=== PATIENT | female | born 1960 | race Caucasian/White ===

== ENCOUNTER → 2016-11-29 | Outpatient (CLI) | payer OTHER ==
[~2016-11-29] MED LIST: 'CLONIDINE0.1 MG PO; AMOXICILLIN500 MG PO; AUGMENTIN 875 M1 TAB PO; BONIVA150 MG PO; CARVEDILOL6.25 MG PO; CELEXA20 MG PO; DIPHENHYDRAMINE50 M1 PO; DOXYCYCLINE MO100 MG PO; ECOTRIN81 MG PO; FLONASE0.05 MG/AC NS; HYDR12.5C PO; HYDR25T PO; IBU-8800 MG PO; LASIX40 MG PO; LISINOPRIL2.5 MG PO; LOPRESSOR25 MG PO; LOPRESSOR50 M1 PO; MELOXICAM15 MG PO; MOTRIN800 MG PO; Motrin,Rufen800 MG PO; NKHM; PRILOSEC20 MG PO; ROBITUSSIN AC 110 ML PO; TOPROL XL25 MG PO; VICO10300 PO; VICODIN 5/500 505 MG PO; ZOFRAN ODT4 MG SL
== END | disposition home or self-care (01) ==
LOC: MAMMO 08:07
DX: N63 Unspecified lump in breast (principal); R92.0 Mammographic microcalcification found on diagnostic imaging of breast

== ENCOUNTER 2017-08-16 10:55 | Emergency (ER) | payer BC ==
[~2017-08-16] VITALS: Ht 162.5 cm; Wt 99.8 kg
[2017-08-16 11:03] VITALS: BP 144/98
[2017-08-16] MEDS ORDERED: NAPROSYN500 MG PO ×2 (12:37→12:53)
== END 2017-08-16 12:42 | disposition home or self-care (01) ==
LOC: ED 10:55
DX: M25.561 Pain in right knee (principal); M25.461 Effusion, right knee; F10.10 Alcohol abuse, uncomplicated; Z79.899 Other long term (current) drug therapy; Z88.8 Allergy status to other drugs, medicaments and biological substances

== ENCOUNTER 2017-10-16 16:41 | Inpatient (IN) | payer BC ==
[~2017-10-16] VITALS: Ht 162.5 cm; Wt 109.1 kg
[~2017-10-16 16:41] MED LIST changes: +NAPROSYN500 MG PO
[2017-10-16 16:44] VITALS: BP 149/92
[2017-10-16 17:13] LABS: BASO # 0.1 10*3/uL (0.0-0.1); BASO % 1.2 % (0.0-1.0); EOS # 0.1 10*3/uL (0.0-0.4); EOS % 1.8 % (1.0-4.0); HEMATOCRIT 39.9 % (37.0-47.0); HEMOGLOBIN 12.8 g/dl (12.0-16.0); LYMPH # 1.1 10*3/uL (1.3-4.4); LYMPH % 21.6 % (27.0-41.0); MEAN CELL VOLUME 88.9 fl (81.0-99.0); MEAN CORPUSCULAR HGB 28.5 pg (27.0-31.0); MEAN CORPUSCULAR HGB CONC 32.1 g/dl (33.0-37.0); MEAN PLATELET VOLUME 9.8 fl (9.6-12.3); MONO # 0.5 10*3/uL (0.1-1.0); MONO % 9.4 % (3.0-9.0); NEUT # 3.4 10*3/uL (2.3-7.9); NEUT % 65.6 % (47.0-73.0); PLATELET COUNT AUTOMATED 310 10*3/uL (130-400); RED BLOOD COUNT 4.49 10*6/uL (4.10-5.10); RED CELL DISTRI WIDTH 14.1 % (0-14.5); WHITE BLOOD COUNT 5.1 10*3/uL (4.8-10.8)
[2017-10-16 17:22] LABS: ACT PARTIAL THROMBO TIME 22.9 SECONDS (20.8-31.5); INTERNATIONAL NORM RATIO 0.9 (2.0-3.5)
[2017-10-16 17:29] LABS: ALBUMIN 3.3 gm/dl (3.1-4.5); ALKALINE PHOSPHATASE 128 U/L (45-117); BUN 13 mg/dl (7-24); CHLORIDE 106 mmol/L (98-107); CREATININE 0.75 mg/dL (0.55-1.02); LIPASE 229 U/L (73-393); POTASSIUM 3.9 mmol/L (3.5-5.1); SGOT/AST 51 IU/L (3-35); SGPT/ALT 49 U/L (12-78); SODIUM 140 mmol/L (136-145); TOTAL PROTEIN 7.2 gm/dL (6.4-8.2)
[2017-10-16 17:32] LABS: TROPONIN I < 0.015 ng/ml (<0.045)
[2017-10-16 18:30] VITALS: BP 138/82
[2017-10-16 19:45] VITALS: BP 147/94
[2017-10-16 20:01] VITALS: BP 147/94
== END 2017-10-17 00:16 | disposition left against medical advice (07) | DRG 282 ==
LOC: ED 16:41 → EDHOLD 18:24 → 5E 18:43
PROVIDERS: Physician Assistant
DX: I21.9 Acute myocardial infarction, unspecified (principal); F10.20 Alcohol dependence, uncomplicated; R07.9 Chest pain, unspecified; F17.200 Nicotine dependence, unspecified, uncomplicated; Z88.9 Allergy status to unspecified drugs, medicaments and biological substances; Z98.891 History of uterine scar from previous surgery; Z98.51 Tubal ligation status; Z82.3 Family history of stroke; Z83.3 Family history of diabetes mellitus; Z82.49 Family history of ischemic heart disease and other diseases of the circulatory system

== ENCOUNTER 2017-11-16 09:21 | Emergency (ER) | payer BC ==
[~2017-11-16] VITALS: Ht 162.5 cm; Wt 95.3 kg
[2017-11-16 09:24] VITALS: BP 96/74
[2017-11-16] MEDS ORDERED: NORCO 5-325 TA1 EACH PO (11:39)
== END 2017-11-16 11:51 | disposition home or self-care (01) ==
LOC: ED 09:21
DX: S52.121A Displaced fracture of head of right radius, initial encounter for closed fracture (principal); Z88.8 Allergy status to other drugs, medicaments and biological substances; W10.9XXA Fall (on) (from) unspecified stairs and steps, initial encounter; Y93.89 Activity, other specified; Y92.89 Other specified places as the place of occurrence of the external cause; Y99.8 Other external cause status

== ENCOUNTER 2018-08-14 14:03 | Emergency (ER) | payer BC ==
[~2018-08-14] VITALS: Ht 162.5 cm; Wt 95.3 kg
[~2018-08-14 14:03] MED LIST changes: +NORCO 5-325 TA1 EACH PO
[2018-08-14 14:04] VITALS: BP 130/90
[2018-08-14] MEDS ORDERED: VISTARIL50 MG PO (14:41)
== END 2018-08-14 15:00 | disposition home or self-care (01) ==
LOC: ED 14:03
DX: L50.0 Allergic urticaria (principal); T44.995A Adverse effect of other drug primarily affecting the autonomic nervous system, initial encounter; I10 Essential (primary) hypertension; Z88.8 Allergy status to other drugs, medicaments and biological substances; Y92.89 Other specified places as the place of occurrence of the external cause

== ENCOUNTER 2019-03-02 16:26 | Emergency (ER) | payer BC ==
[~2019-03-02] VITALS: Ht 162.5 cm; Wt 95.3 kg
[~2019-03-02 16:26] MED LIST changes: +GOOD NEIGHBOR M25 M1 PO; +VISTARIL50 MG PO
[2019-03-02 16:27] VITALS: BP 152/73
[2019-03-02 17:20] LABS: BASO # 0.1 10*3/uL (0.0-0.1); BASO % 0.6 % (0.0-1.0); EOS # 0.2 10*3/uL (0.0-0.4); EOS % 2.2 % (1.0-4.0); HEMATOCRIT 40.1 % (37.0-47.0); HEMOGLOBIN 12.3 g/dl (12.0-16.0); LYMPH # 2.3 10*3/uL (1.3-4.4); LYMPH % 25.1 % (27.0-41.0); MEAN CELL VOLUME 90.7 fl (81.0-99.0); MEAN CORPUSCULAR HGB 27.8 pg (27.0-31.0); MEAN CORPUSCULAR HGB CONC 30.7 g/dl (33.0-37.0); MEAN PLATELET VOLUME 9.8 fl (9.6-12.3); MONO # 0.5 10*3/uL (0.1-1.0); MONO % 5.1 % (3.0-9.0); NEUT % 66.8 % (47.0-73.0); PLATELET COUNT AUTOMATED 328 10*3/uL (130-400); RED BLOOD COUNT 4.42 10*6/uL (4.10-5.10); RED CELL DISTRI WIDTH 14.4 % (0-14.5)
[2019-03-02 17:31] LABS: ACT PARTIAL THROMBO TIME 24.5 SECONDS (20.0-32.1); INTERNATIONAL NORM RATIO 0.9 (2.0-3.5)
== END 2019-03-02 17:40 | disposition home or self-care (01) ==
LOC: ED 16:26
PROVIDERS: Physician Assistant
DX: R23.3 Spontaneous ecchymoses (principal); Z88.8 Allergy status to other drugs, medicaments and biological substances; Z79.899 Other long term (current) drug therapy

== ENCOUNTER 2019-03-07 22:27 | Emergency (ER) | payer BC ==
[~2019-03-07] VITALS: Wt 89.8 kg
[2019-03-07 22:28] VITALS: BP 139/63
[2019-03-07] MEDS ORDERED: ATIVAN1 MG PO (23:36)
[2019-03-07] MEDS ORDERED: ATARAX,VISTARIL50 MG PO (23:42)
== END 2019-03-08 00:13 | disposition home or self-care (01) ==
LOC: ED 22:27
DX: R21 Rash and other nonspecific skin eruption (principal); F41.1 Generalized anxiety disorder; F43.0 Acute stress reaction; I10 Essential (primary) hypertension; Z88.8 Allergy status to other drugs, medicaments and biological substances

== ENCOUNTER 2019-03-10 19:23 | Emergency (ER) | payer BC ==
[~2019-03-10] VITALS: Ht 162.5 cm; Wt 88.5 kg
[~2019-03-10 19:23] MED LIST changes: +ATARAX,VISTARIL50 MG PO; +ATIVAN1 MG PO
[2019-03-10 19:27] VITALS: BP 154/78
[2019-03-10 20:14] LABS: BASO % 0.3 % (0.0-1.0); EOS # 0.3 10*3/uL (0.0-0.4); EOS % 3.9 % (1.0-4.0); HEMATOCRIT 42.4 % (37.0-47.0); HEMOGLOBIN 13.2 g/dl (12.0-16.0); LYMPH # 1.6 10*3/uL (1.3-4.4); LYMPH % 18.2 % (27.0-41.0); MEAN CELL VOLUME 89.5 fl (81.0-99.0); MEAN CORPUSCULAR HGB 27.8 pg (27.0-31.0); MEAN CORPUSCULAR HGB CONC 31.1 g/dl (33.0-37.0); MEAN PLATELET VOLUME 9.9 fl (9.6-12.3); MONO # 0.5 10*3/uL (0.1-1.0); MONO % 5.1 % (3.0-9.0); NEUT # 6.3 10*3/uL (2.3-7.9); PLATELET COUNT AUTOMATED 324 10*3/uL (130-400); RED BLOOD COUNT 4.74 10*6/uL (4.10-5.10); RED CELL DISTRI WIDTH 14.3 % (0-14.5); WHITE BLOOD COUNT 8.7 10*3/uL (4.8-10.8)
[2019-03-10 20:33] LABS: ALBUMIN 3.2 gm/dl (3.1-4.5); ALKALINE PHOSPHATASE 133 U/L (45-117); BUN 18 mg/dl (7-24); CHLORIDE 109 mmol/L (98-107); CREATININE 1.04 mg/dL (0.55-1.02); SGOT/AST 32 IU/L (3-35); SGPT/ALT 43 U/L (12-78); SODIUM 138 mmol/L (136-145); TOTAL PROTEIN 7.2 gm/dL (6.4-8.2)
[2019-03-10] MEDS ORDERED: PREDNISONE20 M1 PO (22:07)
== END 2019-03-10 22:21 | disposition home or self-care (01) ==
LOC: ED 19:23
PROVIDERS: Emergency Medicine Emergency Medical Services
DX: L30.9 Dermatitis, unspecified (principal); I10 Essential (primary) hypertension; Z88.8 Allergy status to other drugs, medicaments and biological substances

== ENCOUNTER → 2019-05-15 | Outpatient (CLI) | payer BC ==
[~2019-05-15] MED LIST changes: +PREDNISONE20 M1 PO
[2019-05-15 10:34] LABS: BASO # 0.1 10*3/uL (0.0-0.1); BASO % 0.7 % (0.0-1.0); EOS # 0.1 10*3/uL (0.0-0.4); EOS % 1.1 % (1.0-4.0); HEMATOCRIT 42.8 % (37.0-47.0); HEMOGLOBIN 13.5 g/dl (12.0-16.0); LYMPH # 1.7 10*3/uL (1.3-4.4); LYMPH % 19.4 % (27.0-41.0); MEAN CELL VOLUME 88.8 fl (81.0-99.0); MEAN CORPUSCULAR HGB CONC 31.5 g/dl (33.0-37.0); MONO # 0.4 10*3/uL (0.1-1.0); MONO % 4.7 % (3.0-9.0); NEUT # 6.5 10*3/uL (2.3-7.9); NEUT % 73.6 % (47.0-73.0); PLATELET COUNT AUTOMATED 397 10*3/uL (130-400); RED BLOOD COUNT 4.82 10*6/uL (4.10-5.10); RED CELL DISTRI WIDTH 14.4 % (0-14.5); WHITE BLOOD COUNT 8.8 10*3/uL (4.8-10.8)
[2019-05-15 11:03] LABS: ALBUMIN 3.4 gm/dl (3.1-4.5); ALKALINE PHOSPHATASE 137 U/L (45-117); BUN 11 mg/dl (7-24); CHLORIDE 107 mmol/L (98-107); CHOLESTEROL 223 mg/dL (<200); CREATININE 0.66 mg/dL (0.55-1.02); FREE T4 0.84 ng/dl (0.76-1.46); HDL CHOLESTEROL 78 mg/dl (40-60); LDL CHOLESTEROL 124 mg/dL (9-159); POTASSIUM 3.7 mmol/L (3.5-5.1); SGOT/AST 18 IU/L (3-35); SGPT/ALT 38 U/L (12-78); SODIUM 139 mmol/L (136-145); TOTAL PROTEIN 7.5 gm/dL (6.4-8.2); TRIGLYCERIDES 107 mg/dl (<150); VLDL CHOLESTEROL 21 mg/dL (6-40)
[2019-05-15 11:29] LABS: VITAMIN D, 25-HYDROXY 23.8 ng/mL (30-100)
[2019-05-16 08:11] LABS: RHEUMATOID ARTHRITIS FACTOR <10.0 IU/mL (0.0-13.9)
[2019-05-16 13:08] LABS: ANTI-DSDNA ANTIBODIES 096339 <1 IU/mL (0-9)
== END | disposition home or self-care (01) ==
LOC: LAB 09:45 → EDSTATUS 09:45
PROVIDERS: Internal Medicine
DX: Z13.21 Encounter for screening for nutritional disorder (principal); Z13.1 Encounter for screening for diabetes mellitus; Z13.220 Encounter for screening for lipoid disorders; I10 Essential (primary) hypertension; F33.0 Major depressive disorder, recurrent, mild; L20.9 Atopic dermatitis, unspecified; R70.0 Elevated erythrocyte sedimentation rate

== ENCOUNTER 2019-10-03 12:59 | Emergency (ER) | payer BC ==
[~2019-10-03] VITALS: Ht 162.5 cm; Wt 104.3 kg
[2019-10-03 13:08] VITALS: BP 109/69
[2019-10-03] MEDS ORDERED: PREDNISONE50 MG PO (13:50)
== END 2019-10-03 14:34 | disposition home or self-care (01) ==
LOC: ED 12:59
DX: L25.9 Unspecified contact dermatitis, unspecified cause (principal); I10 Essential (primary) hypertension; Z88.8 Allergy status to other drugs, medicaments and biological substances

== ENCOUNTER 2019-10-13 11:19 | Emergency (ER) | payer BC ==
[~2019-10-13] VITALS: Ht 162.5 cm; Wt 104.3 kg
[~2019-10-13 11:19] MED LIST changes: +PREDNISONE50 MG PO
[2019-10-13 11:38] VITALS: BP 141/100
[2019-10-13] MEDS ORDERED: PREDNISONE20 M1 PO (12:19)
[2019-10-13] MEDS ORDERED: ELIMITE 5%60 GM T (12:21)
== END 2019-10-13 12:45 | disposition home or self-care (01) ==
LOC: ED 11:19
DX: L30.9 Dermatitis, unspecified (principal); I10 Essential (primary) hypertension; Z88.8 Allergy status to other drugs, medicaments and biological substances; Z79.899 Other long term (current) drug therapy

== ENCOUNTER 2020-10-18 19:42 | Emergency (ER) | payer BC ==
[~2020-10-18] VITALS: Ht 163.8 cm; Wt 99.8 kg
[~2020-10-18 19:42] MED LIST changes: +ELIMITE 5%60 GM T
[2020-10-18 19:55] VITALS: BP 165/93
== END 2020-10-18 22:05 | disposition home or self-care (01) ==
LOC: ED 19:42
DX: S20.01XA Contusion of right breast, initial encounter (principal); G43.909 Migraine, unspecified, not intractable, without status migrainosus; I10 Essential (primary) hypertension; M19.90 Unspecified osteoarthritis, unspecified site; Z88.8 Allergy status to other drugs, medicaments and biological substances; Z79.899 Other long term (current) drug therapy; Z98.890 Other specified postprocedural states; Z98.51 Tubal ligation status; Y04.2XXA Assault by strike against or bumped into by another person, initial encounter; Y93.89 Activity, other specified; Y92.098 Other place in other non-institutional residence as the place of occurrence of the external cause; Y99.8 Other external cause status

== ENCOUNTER 2022-05-01 09:30 | Emergency (ER) | payer BC ==
[~2022-05-01] VITALS: Wt 111.6 kg
[2022-05-01 09:59] VITALS: BP 152/99
[2022-05-01] MEDS ORDERED: DOXEPIN25 MG PO (10:23)
== END 2022-05-01 10:42 | disposition home or self-care (01) ==
LOC: ED 09:30
DX: L30.9 Dermatitis, unspecified (principal); Z88.8 Allergy status to other drugs, medicaments and biological substances; Z79.899 Other long term (current) drug therapy; Z98.890 Other specified postprocedural states; Z98.51 Tubal ligation status

== ENCOUNTER 2022-09-28 18:30 | Emergency (ER) | payer BC ==
[~2022-09-28] VITALS: Ht 162.5 cm; Wt 104.3 kg
[~2022-09-28 18:30] MED LIST changes: +DOXEPIN25 MG PO
[2022-09-28 19:23] LABS: BASO # 0.1 10*3/uL (0.0-0.1); BASO % 0.7 % (0.0-1.0); EOS # 0.1 10*3/uL (0.0-0.4); EOS % 1.5 % (1.0-4.0); HEMATOCRIT 41.7 % (37.0-47.0); LYMPH # 1.7 10*3/uL (1.3-4.4); LYMPH % 19.8 % (27.0-41.0); MEAN CELL VOLUME 88.3 fl (81.0-99.0); MEAN CORPUSCULAR HGB 28.2 pg (27.0-31.0); MEAN CORPUSCULAR HGB CONC 31.9 g/dl (33.0-37.0); MEAN PLATELET VOLUME 9.7 fl (9.6-12.3); MONO # 0.4 10*3/uL (0.1-1.0); MONO % 5.1 % (3.0-9.0); NEUT # 6.2 10*3/uL (2.3-7.9); NEUT % 72.3 % (47.0-73.0); PLATELET COUNT AUTOMATED 393 10*3/uL (130-400); RED BLOOD COUNT 4.72 10*6/uL (4.10-5.10); WHITE BLOOD COUNT 8.6 10*3/uL (4.8-10.8)
[2022-09-28 19:33] LABS: INTERNATIONAL NORM RATIO 0.9 (2.0-3.5)
[2022-09-28 19:39] LABS: ALKALINE PHOSPHATASE 109 U/L (46-116); BUN 18 mg/dl (9-23); CHLORIDE 103 mmol/L (98-107); POTASSIUM 3.8 mmol/L (3.4-5.1); SGPT/ALT 24 U/L (10-49)
[2022-09-28 21:04] VITALS: BP 160/84
== END 2022-09-28 22:19 | disposition home or self-care (01) ==
LOC: ED 18:30
PROVIDERS: Physician Assistant
DX: M79.601 Pain in right arm (principal); Z88.8 Allergy status to other drugs, medicaments and biological substances; Z98.890 Other specified postprocedural states; Z98.51 Tubal ligation status; Z90.89 Acquired absence of other organs

== ENCOUNTER → 2023-01-12 | Outpatient (CLI) | payer BC | END | disposition home or self-care (01) | LOC: RAD 10:44 | PROVIDERS: ATTEND Internal Medicine | DX: Z00.00 Encounter for general adult medical examination without abnormal findings (principal); M25.832 Other specified joint disorders, left wrist; M19.042 Primary osteoarthritis, left hand; M19.012 Primary osteoarthritis, left shoulder ==

== ENCOUNTER 2023-01-15 11:57 | Emergency (ER) | payer BC ==
[~2023-01-15] VITALS: Ht 162.5 cm; Wt 108.9 kg
[2023-01-15 12:19] VITALS: BP 148/89
== END 2023-01-15 16:18 | disposition left against medical advice (07) ==
LOC: ED 11:57
DX: R07.81 Pleurodynia (principal); G43.909 Migraine, unspecified, not intractable, without status migrainosus; I10 Essential (primary) hypertension; M19.90 Unspecified osteoarthritis, unspecified site; Z88.8 Allergy status to other drugs, medicaments and biological substances; Z98.51 Tubal ligation status; Z98.890 Other specified postprocedural states

== ENCOUNTER 2023-04-13 14:09 | Emergency (ER) | payer BC ==
[~2023-04-13] VITALS: Ht 162.5 cm; Wt 104.3 kg
[2023-04-13 14:40] VITALS: BP 136/85
== END 2023-04-13 16:23 | disposition home or self-care (01) ==
LOC: ED 14:09
DX: T63.441A Toxic effect of venom of bees, accidental (unintentional), initial encounter (principal); R06.02 Shortness of breath; L53.9 Erythematous condition, unspecified; Z88.8 Allergy status to other drugs, medicaments and biological substances; Z98.890 Other specified postprocedural states; Z98.51 Tubal ligation status; Y92.89 Other specified places as the place of occurrence of the external cause

== ENCOUNTER → 2023-06-08 | Outpatient (CLI) | payer BC | END | disposition home or self-care (01) | LOC: US 09:51 | PROVIDERS: ATTEND Internal Medicine | DX: N63.20 Unspecified lump in the left breast, unspecified quadrant (principal); N64.4 Mastodynia ==

== ENCOUNTER → 2024-02-09 | Outpatient (CLI) | payer BC ==
[2024-02-09 14:17] LABS: BASO # 0.1 10*3/uL (0.0-0.1); BASO % 0.9 % (0.0-1.0); EOS # 0.1 10*3/uL (0.0-0.4); EOS % 1.8 % (1.0-4.0); HEMATOCRIT 42.8 % (37.0-47.0); LYMPH # 1.7 10*3/uL (1.3-4.4); LYMPH % 24.8 % (27.0-41.0); MEAN CORPUSCULAR HGB 27.6 pg (27.0-31.0); MEAN CORPUSCULAR HGB CONC 31.8 g/dl (33.0-37.0); MEAN PLATELET VOLUME 10.2 fl (9.6-12.3); MONO # 0.3 10*3/uL (0.1-1.0); MONO % 5.1 % (3.0-9.0); NEUT # 4.5 10*3/uL (2.3-7.9); NEUT % 66.9 % (47.0-73.0); PLATELET COUNT AUTOMATED 335 10*3/uL (130-400); RED BLOOD COUNT 4.92 10*6/uL (4.10-5.10); RED CELL DISTRI WIDTH 14.7 % (0-14.5); WHITE BLOOD COUNT 6.7 10*3/uL (4.8-10.8)
[2024-02-09 15:26] LABS: ALKALINE PHOSPHATASE 78 U/L (46-116); BUN 12 mg/dl (9-23); CHLORIDE 105 mmol/L (98-107); CHOLESTEROL 172 mg/dL (<200); FREE T4 1.32 ng/dl (0.89-1.76); LDL CHOLESTEROL 110 mg/dL (9-159); POTASSIUM 4.1 mmol/L (3.4-5.1); SGPT/ALT 24 U/L (5-49); TOTAL PROTEIN 7.2 gm/dL (6.0-8.0); TRIGLYCERIDES 54 mg/dl (<150)
[2024-02-09 15:29] LABS: VITAMIN D, 25-HYDROXY 40.8 ng/mL (30-100)
== END | disposition home or self-care (01) ==
LOC: LAB 13:56
PROVIDERS: ATTEND Internal Medicine
DX: I10 Essential (primary) hypertension (principal); J44.9 Chronic obstructive pulmonary disease, unspecified; E11.9 Type 2 diabetes mellitus without complications

== ENCOUNTER 2024-07-05 00:14 | Emergency (ER) | payer BC ==
[~2024-07-05] VITALS: Ht 160 cm; Wt 104.3 kg
[2024-07-05 00:34] VITALS: BP 167/92
[2024-07-05] MEDS ORDERED: hydrOXYzine pamoate 25 MG CAP PO ONE (00:45)
[2024-07-05] MEDS ORDERED: VISTARIL25 M2 PO (00:54)
== END 2024-07-05 01:07 | disposition home or self-care (01) ==
LOC: ED 00:14
DX: L29.9 Pruritus, unspecified (principal); G43.909 Migraine, unspecified, not intractable, without status migrainosus; I10 Essential (primary) hypertension; M19.90 Unspecified osteoarthritis, unspecified site; Z88.8 Allergy status to other drugs, medicaments and biological substances; Z98.890 Other specified postprocedural states

== ENCOUNTER 2024-07-10 11:55 | Emergency (ER) | payer BC ==
[~2024-07-10] VITALS: Ht 160 cm; Wt 104.3 kg
[~2024-07-10 11:55] MED LIST changes: +VISTARIL25 M2 PO
[2024-07-10] MEDS ORDERED: methylPREDNISolone sod succ 125 MG VIAL IV ONE (12:20)
[2024-07-10] MEDS ORDERED: SODIUM CHLORIDE 0.9% 500 ML IV ONE (12:20)
[2024-07-10] MEDS ORDERED: FAMOTIDINE 50 ML IV ONE (12:20)
[2024-07-10] MEDS ORDERED: diphenhydrAMINE hydrochloride 50 MG/ML VIAL IV ONE (12:20)
[2024-07-10 15:01] VITALS: BP 158/92
== END 2024-07-10 15:24 | disposition home or self-care (01) ==
LOC: ED 11:55
DX: L50.9 Urticaria, unspecified (principal); F41.9 Anxiety disorder, unspecified; I10 Essential (primary) hypertension; G43.909 Migraine, unspecified, not intractable, without status migrainosus; M19.90 Unspecified osteoarthritis, unspecified site; Z88.8 Allergy status to other drugs, medicaments and biological substances; Z98.890 Other specified postprocedural states

== ENCOUNTER 2024-07-12 19:58 | Emergency (ER) | payer BC ==
[~2024-07-12] VITALS: Ht 160 cm; Wt 104.3 kg
[2024-07-12 20:07] VITALS: BP 142/76
[2024-07-12] MEDS ORDERED: methylPREDNISolone sod succ 125 MG VIAL IM ONE (20:35)
[2024-07-12] MEDS ORDERED: PREDNISONE20 M1 PO (20:41)
== END 2024-07-12 21:46 | disposition home or self-care (01) ==
LOC: ED 19:58
DX: L29.9 Pruritus, unspecified (principal); G43.909 Migraine, unspecified, not intractable, without status migrainosus; I10 Essential (primary) hypertension; M19.90 Unspecified osteoarthritis, unspecified site; Z88.8 Allergy status to other drugs, medicaments and biological substances; Z98.890 Other specified postprocedural states

== ENCOUNTER → 2024-07-17 | Outpatient (CLI) | payer BC ==
[2024-07-17 12:35] LABS: BASO # 0.1 10*3/uL (0.0-0.1); BASO % 1.2 % (0.0-1.0); EOS # 0.3 10*3/uL (0.0-0.4); EOS % 2.8 % (1.0-4.0); HEMATOCRIT 44.2 % (37.0-47.0); MEAN CORPUSCULAR HGB 27.7 pg (27.0-31.0); MEAN CORPUSCULAR HGB CONC 30.8 g/dl (33.0-37.0); MEAN PLATELET VOLUME 9.3 fl (9.6-12.3); MONO # 0.4 10*3/uL (0.1-1.0); MONO % 4.6 % (3.0-9.0); NEUT # 6.2 10*3/uL (2.3-7.9); NEUT % 69.4 % (47.0-73.0); PLATELET COUNT AUTOMATED 378 10*3/uL (130-400); RED BLOOD COUNT 4.91 10*6/uL (4.10-5.10); RED CELL DISTRI WIDTH 14.1 % (0-14.5); WHITE BLOOD COUNT 8.9 10*3/uL (4.8-10.8)
[2024-07-17 13:22] LABS: ALKALINE PHOSPHATASE 102 U/L (46-116); BUN 14 mg/dl (9-23); CHLORIDE 106 mmol/L (98-107); CHOLESTEROL 227 mg/dL (<200); FREE T4 1.13 ng/dl (0.89-1.76); LDL CHOLESTEROL 134 mg/dL (9-159); POTASSIUM 4.2 mmol/L (3.4-5.1); SGPT/ALT 16 U/L (5-49); TOTAL PROTEIN 7.3 gm/dL (6.0-8.0); TRIGLYCERIDES 117 mg/dl (<150)
[2024-07-17 13:23] LABS: VITAMIN D, 25-HYDROXY 32.2 ng/mL (30-100)
[2024-07-18 11:03] LABS: ANTI-DSDNA ANTIBODIES 5 IU/mL (0-9)
[2024-07-18 16:09] LABS: t-TRANSGLUTAMINASE (tTG) IGA <2 U/mL (0-3); t-TRANSGLUTAMINASE (tTG) IgG 4 U/mL (0-5)
== END | disposition home or self-care (01) ==
LOC: LAB 12:03
PROVIDERS: ATTEND Internal Medicine
DX: I10 Essential (primary) hypertension (principal); N63.20 Unspecified lump in the left breast, unspecified quadrant; E66.01 Morbid (severe) obesity due to excess calories; R20.2 Paresthesia of skin; M79.605 Pain in left leg; M54.50 Low back pain, unspecified; L30.8 Other specified dermatitis; R53.83 Other fatigue; R53.81 Other malaise; E55.9 Vitamin D deficiency, unspecified; E53.9 Vitamin B deficiency, unspecified